=== PATIENT | female | born 1995 | race American Indian/Alaskan Native ===

== ENCOUNTER 2020-05-09 16:01 | Emergency (ER) | payer SELFPAY ==
[2020-05-09 16:28] VITALS: BP 130/90
[2020-05-09] MEDS ORDERED: ALBUTEROL 2.5 MG/3 ML NEBU IH ONE (20:32)
[2020-05-09] MEDS ORDERED: methylPREDNISolone Sod Succinate 125 MG/2 ML INJ IV ONE (20:32)
[2020-05-09] MEDS ORDERED: IPRATROPIUM 0.02% NEBU 2.5 ML IH ONE (20:32)
--- NOTE | 2020-05-09 20:40 | Emergency Department Report ---
ED General Adult HPI - General Chief complaint: Dyspnea/Respdistress Stated complaint: LOWER ABD PAIN/ASTHMA PUI?: No Time Seen by Provider: 05/09/20 20:20 Source: patient Mode of arrival: Ambulatory Limitations: No Limitations - History of Present Illness Initial comments: Patient is a 24-year-old female that presents emergency room with complaints of lower abdominal pain and shortness of breath. Patient that she has a history of asthma. Patient dates her asthma has been acting up. Patient states that her symptoms been going on for a week and are worsening. Patient denies fever and chills. Patient complains of a dry cough. Patient denies dizziness. Patient denies headache. Patient states her lower abdominal pain is a 3 out of 10. Patient complains of dysuria. Patient states it broussard when she urinates. Patie nt states her dysuria has been going on for 1 week as well. Patient states the symptoms worsening as well. Patient states that her shortness of breath is better with rest and worse with exertion. Patient states her abdominal pain is better with rest and worse with urination. Patient denies recent travel. Patient denies recent international travel. Patient denies exposure to the novel coronavirus. Patient denies sick contacts. Patient denies fever and chills. Patient denies diarrhea. Patient denies coming in contact with anybody with symptoms of the novel coronavirus. -: Sudden Location: abdomen Radiation: non-radiation Severity scale (0 -10): 3 Quality: burning Consistency: constant Improves with: rest Worsens with: movement, other (urina they aretion) Associated Symptoms: cough, shortness of breath. denies: confusion, chest pain, diaphoresis, fever/chills, headaches, loss of appetite, malaise, nausea/vomiting, rash (While she also), seizure, syncope, weakness - Related Data Previous Rx's Medication Instructions Recorded Last Taken Type Albuterol Mdi (or & Nicu Only) 2 puff IH QID PRN #1 inh 05/09/20 Unknown Rx [ProAir HFA Inhaler] Sulfamethoxazole/Trimethoprim 1 each PO BID 10 Days #20 tablet 05/09/20 Unknown Rx [Bactrim DS TAB] dexAMETHasone [Taperdex] 1.5 mg PO DAILY 7 Days #1 tab.ds.pk 05/09/20 Unknown Rx Allergies Allergy/AdvReac Type Severity Reaction Status Date / Time No Known Allergies Allergy Unverified 05/09/20 16:23 ED Review of Systems ROS: Stated complaint: LOWER ABD PAIN/ASTHMA Other details as noted in HPI Constitutional: denies: chills, fever Eyes: denies: eye pain, eye discharge, vision change ENT: denies: ear pain, throat pain Respiratory: cough, shortness of breath, SOB with exertion, SOB at rest, wheezing Cardiovascular: denies: chest pain, palpitations Endocrine: no symptoms reported Gastrointestinal: abdominal pain. denies: nausea, vomiting, diarrhea Genitourinary: denies: urgency, dysuria, discharge Musculoskeletal: denies: back pain, joint swelling, arthralgia Skin: denies: rash, lesions Neurological: denies: headache, weakness, paresthesias Psychiatric: denies: anxiety, depression Hematological/Lymphatic: denies: easy bleeding, easy bruising ED Past Medical Hx - Past Medical History Previous Medical History?: Yes Hx Asthma: Yes - Surgical History Past Surgical History?: No - Family History Family history: no significant - Social History Smoking Status: Never Smoker Substance Use Type: None - Medications Home Medications: Home Medications Medication Instructions Recorded Confirmed Last Taken Type Albuterol Mdi (or & Nicu Only) 2 puff IH QID PRN #1 inh 05/09/20 Unknown Rx [ProAir HFA Inhaler] Sulfamethoxazole/Trimethoprim 1 each PO BID 10 Days #20 tablet 05/09/20 Unknown Rx [Bactrim DS TAB] dexAMETHasone [Taperdex] 1.5 mg PO DAILY 7 Days #1 tab.ds.pk 05/09/20 Unknown Rx ED Physical Exam - General Limitations: No Limitations General appearance: alert, in no apparent distress - Head Head exam: Present: atraumatic, normocephalic - Eye Eye exam: Present: normal appearance - ENT ENT exam: Present: mucous membranes moist - Neck Neck exam: Present: normal inspection - Respiratory Respiratory exam: Present: respiratory distress, wheezes, decreased breath sounds. Absent: rales, chest wall tenderness - Cardiovascular Cardiovascular Exam: Present: regular rate, normal rhythm. Absent: systolic murmur, diastolic murmur, rubs, gallop - GI/Abdominal GI/Abdominal exam: Present: soft, normal bowel sounds. Absent: distended, tenderness, guarding - Extremities Exam Extremities exam: Present: normal inspection - Back Exam Back exam: Present: normal inspection - Neurological Exam Neurological exam: Present: alert, oriented X3 - Psychiatric Psychiatric exam: Present: normal affect, normal mood - Skin Skin exam: Present: warm, dry, intact, normal color. Absent: rash ED Course Vital Signs 05/09/20 16:27 Temperature 97.5 F L Pulse Rate 95 H Respiratory 16 Rate Blood Pressure 130/90 [Right] O2 Sat by Pulse 98 Oximetry - Reevaluation(s) Reevaluation #1: Patient states he is feeling much better. Patient states her shortness of breath is almost resolved. 05/09/20 21:26 Reevaluation #2: I discussed all results and clinical findings with patient. I discussed plan of care with patient. Patient agrees with plan of care. Patient is stable for discharge. Patient will be discharged home. Patient given discharge instructions. Patient voiced understanding of discharge instructions. 05/09/20 22:27 ED Medical Decision Making - Lab Data Result diagrams: 05/09/20 20:49 05/09/20 20:49 - Radiology Data Radiology results: report reviewed, image reviewed interpreted by me: Chest x-ray: No pneumonia, no pneumothorax, no foreign body, no osseous findings, no acute findings - Medical Decision Making Patient is a 24-year-old female that presents emergency room with complaints of asthmatic breathing and abdominal pain. Patient's abdominal exam was negative. Patient on initial exam found to have respiratory distress, wheezing and shallow breathing. Patient given Solu-Medrol and a breathing treatment her lungs became eusebio and her work to breathe resolved. Patient's lungs were clear upon discharge. Patient had labs done which were essentially unremarkable. Patient also complained of dysuria and she had a UA which was positive for UTI. Patient given antibiotics and steroids. Patient antibiotics for UTI and steroids for bronchitis. Patient stable for discharge. Patient discharged home. - Differential Diagnosis SOB, abdominal pain, asthma exacerbation, pneumonia, bronchitis, UTI Critical Care Time: Yes Critical care time in (mins) excluding proc time.: 35 Critical care attestation.: If time is entered above; I have spent that time in minutes in the direct care of this critically ill patient, excluding procedure time. Critical Care Time: 35 MINUTES ED Disposition Clinical Impression: Dysuria UTI (urinary tract infection) Qualifiers: Urinary tract infection type: acute cystitis Hematuria presence: with hematuria Qualified Code(s): N30.01 - Acute cystitis with hematuria Asthma exacerbation Qualifiers: Asthma severity: moderate Asthma persistence: unspecified Qualified Code(s): J45.901 - Unspecified asthma with (acute) exacerbation Asthmatic bronchitis Qualifiers: Asthma severity: unspecified severity Asthma persistence: unspecified Asthma complication type: with acute exacerbation Qualified Code(s): J45.901 - Unsp ecified asthma with (acute) exacerbation Abdominal pain Qualifiers: Abdominal location: lower abdomen, unspecified Qualified Code(s): R10.30 - Lower abdominal pain, unspecified Disposition: TO HOME OR SELFCARE Is pt being admited?: No Does the pt Need Aspirin: No Condition: Stable Instructions: Asthma (ED), Acute Bronchitis (ED) Additional Instructions: Patient to follow-up with primary care in 2 to 3 days. Patient to follow-up with [facility] in 2 to 3 days. Patient to rest. Patient to increase water. Patient to avoid strenuous exercise or heavy lifting until cleared by [facility]. Patient to take Tylenol or ibuprofen as needed for pain. Patie nt to take meds as directed. Patient to return to the ER if condition worsens, changes or new symptoms arise. Prescriptions: Sulfamethoxazole/Trimethoprim [Bactrim DS TAB] 1 each PO BID 10 Days #20 tablet Albuterol Mdi (or & Nicu Only) [ProAir HFA Inhaler] 2 puff IH QID PRN #1 inh PRN Reason: Shortness Of Breath dexAMETHasone [Taperdex] 1.5 mg PO DAILY 7 Days #1 tab.ds.pk Referrals: PRIMARY MD TONY [Primary Care Provider] - 2-3 Days YUN MORRISSEY MD [Staff Physician] - 2-3 Days Time of Disposition: 22:42
[2020-05-09 21:11] LABS: Bacteria,Urine 1+ /HPF (Negative); Bilirubin,Urine NEG (Negative); Blood,Urine NEG (Negative); Color,Urine Yellow (Yellow); Mucus,Urine 1+ /HPF; Protein,Urine <15 mg/dL mg/dL (Negative); Urobilinogen,Urine < 2.0 mg/dL (<2.0)
[2020-05-09 21:14] LABS: HCG Qualitative,Urine Negative (Negative)
[2020-05-09 21:31] LABS: Basophils # (Auto) 0.1 K/mm3 (0.0-0.1); Basophils % (Auto) 1.5 % (0.0-1.8); Eosinophils # (Auto) 0.4 K/mm3 (0.0-0.4); Eosinophils % (Auto) 4.1 % (0.0-4.3); Hematocrit 44.4 % (30.3-42.9); Hemoglobin 14.8 gm/dl (10.1-14.3); Lymphocytes # (Auto) 3.8 K/mm3 (1.2-5.4); Lymphocytes % (Auto) 43.8 % (13.4-35.0); Mean Corpuscular HGB Conc 33 % (30-34); Mean Corpuscular Volume 93 fl (79-97); Monocytes # (Auto) 0.6 K/mm3 (0.0-0.8); Monocytes % (Auto) 6.6 % (0.0-7.3); Platelet Count 390 K/mm3 (140-440); Red Blood Count 4.76 M/mm3 (3.65-5.03); Red Cell Distribution Width 13.4 % (13.2-15.2)
--- NOTE | 2020-05-09 21:47 | XRay Report ---
CHEST 2 VIEW INDICATION / CLINICAL INFORMATION: Dyspnea. COMPARISON: None available. FINDINGS: SUPPORT DEVICES: None. HEART / MEDIASTINUM: No significant abnormality. LUNGS / PLEURA: No significant pulmonary or pleural abnormality. No pneumothorax. ADDITIONAL FINDINGS: No significant additional findings. IMPRESSION: 1. No acute findings. Signer Name: Tien Green MD Signed: 05/09/2020 9:43 PM Workstation Name: [id number]
[2020-05-09 21:48] LABS: Alanine Aminotransferase 9 units/L (7-56); Albumin 4.4 g/dL (3.9-5); Blood Urea Nitrogen 9 mg/dL (7-17); Calcium 9.8 mg/dL (8.4-10.2); Hemolysis Index 3
[2020-05-09 21:52] LABS: BUN/Creatinine Ratio 13
== END 2020-05-09 22:50 | disposition home or self-care (01) ==
LOC: ED 16:01
DX: J45.901 Unspecified asthma with (acute) exacerbation (principal); N39.0 Urinary tract infection, site not specified; R10.30 Lower abdominal pain, unspecified; R30.0 Dysuria; Z79.899 Other long term (current) drug therapy
CPT/HCPCS: 36415; 71046; 80053; 81001; 81025; 85025; 94640; 96374; 99284; J2930